=== PATIENT | male | born 2000 | race Caucasian/White ===

== ENCOUNTER 2019-10-13 20:40 | Emergency (ER) | payer SELFPAY ==
[2019-10-13 20:43] VITALS: BP 145/94; PULSE 83; RESP 16; TEMP 36.9; O2SAT 97; BMI 27.3
[2019-10-13] MEDS: Lidocaine/Epi/Tetracaine 50 ML 1 APPLIC TOPICAL (20:59)
--- NOTE | 2019-10-13 20:59 | ED.VIS.INJ ---
History of Present Illness Chief Complaint: Laceration Informant: Patient Onset: Today Mechanism/Context: Blunt Injury Quality of Pain: Dull Location: Dorsum left hand Current Severity: Mild Maximum Severity: Moderate Worsened by: Nothing Relieved by: Nothing Associated Symptoms: Negative for: Parasthesias, Weakness, Loss of function, Inability to ambulate, Loss of consciousness Narrative: Patient is a 19-year-old [id number] male who was ice skating. He fell. His hand went up against another person skate. He has a laceration to the dorsal surface of his left hand. He denies paresthesia, anesthesia medics. He has no other complaints. Tetanus was 1 to 2 years ago. Tetanus Immunization: <5 years Prior similar symptoms: Yes Recent Illness/Hospitalization: No - Past Medical History (1) No significant past medical history Status: Acute Past Medical History - Allergies and Home Meds Allergies/Adverse Reactions: Allergies No Known Allergies Allergy (Verified 10/13/19 20:41) Primary Care Physician: Lor Moreau MD [Primary Care Provider] - Prior records reviewed: No Past Medical History: None Surgical History: no surgical history Lives: Alone Smoking Status: Never smoker Alcohol: None Drugs: None Review of Systems Gastrointestinal: Denies: Nausea, Vomiting Musculoskeletal: Reports: Extremity Pain. Denies: Myalgias, Arthralgias, Neck pain, Back pain, Swelling Neurological: Denies: Weakness, Parasthesia, Numbness Hematologic: Denies: Easy bruising, Easy bleeding Physical Exam Vital Signs/Narrative: Vital Signs Temp Pulse Resp BP Pulse Ox 10/13/19 20:43 98.5 F 83 16 145/94 H 97 Inital Vital Signs reviewed: Yes General: Well nourished, Well developed Head: Normocephalic, Atraumatic Eyes: Perrl, EOMI. Negative for: Pale conjunctiva, Scleral icterus ENT: TM's clear, No hemotympanum or drainage, No trauma Cardiovascular: Regular rate, Regular rhythm Respiratory: No distress Extremeties: There is a jagged W-shaped laceration dorsum of the left hand. The extensor indices, extensor commonness and extensor minimize tendon are intact. Capillary refill in all digits of the left hand are normal. Sensation including two-point is normal. There is no tenderness to palpation over the metacarpal bones. There is no soft tissue swelling. Neurological: Alert, Oriented x3, Cranial nerves II-XII grossly intact, Normal Strength, Normal Sensation Diagnostic/Tx/Re-eval - Medical Decision Making Patient's wound was anesthetized. Will irrigate and suture. Please see procedure note. Laceration No standard instances Length: 2.17 in Depth: Fascia Shape: Flap - Jagged gaping laceration Prep: Gina Laceration Repair: Wound explored - Was debridement with removal of devitalized tissue on the radial and ulnar side of the laceration. Irrigated (ml): 250 Number of Sutures/[place]: 11 Stitch Description: Ethilon, 5-0 ED Disposition - Plan for ED Patient: Disposition: Home or Assisted Living Diagnosis: Laceration of hand Instructions: LACERATION, Hand Referrals: Lor Moreau MD [Primary Care Provider] - 10-14 Days suture removal Additional Instructions: In wound with peroxide on a Q-tip 3 times a day then apply bacitracin ointment. Keep wound absolutely clean and dry for the next 48 to 72 hours.
[2019-10-13 22:15] VITALS: RESP 16
== END 2019-10-13 22:17 | disposition home or self-care (01) ==
PROVIDERS: Emergency Provider Emergency Medicine; PCP Pediatrics; Referring Provider Pediatrics
DX: S61.412A Laceration without foreign body of left hand, initial encounter (principal); W19.XXXA Unspecified fall, initial encounter; Y93.21 Activity, ice skating; Y92.9 Unspecified place or not applicable
CPT/HCPCS: 12002; 99285